=== PATIENT | female | born 1950 | race Caucasian/White ===

== ENCOUNTER 2019-06-04 18:55 | Inpatient (IN) | payer MEDICARE, BC ==
[~2019-06-04] VITALS: Ht 165.1 cm; Wt 84.8 kg
--- NOTE | 2019-06-04 19:25 | NUR ---
Dr. Montes at bedside for MSE.
[2019-06-04] MEDS ORDERED: KETOROLAC TROMETHAMINE 60 MG INJ IM ONE (19:30)
--- NOTE | 2019-06-04 19:30 | NUR ---
Patient ambulated out of ER with stable gait, pt is A/O x 4 and speaking in complete sentences. Pt presents to ER for the c/o left shoulder/arm, back and bilateral hand pain s/p fall 2 hours [employer]. Pt denies LOC. PMX: osteoporosis Safe environment implemented.
[2019-06-04] MEDS ORDERED: IBUPROFEN 600 MG TABLET PO ONE (19:45)
[2019-06-04] MEDS ORDERED: ACETAMINOPHEN ES 500 MG TABLET PO ONE (19:45)
[2019-06-04] MEDS ORDERED: ACETAMINOPHEN ES 500 MG TABLET ONE (19:51)
[2019-06-04] MEDS ORDERED: IBUPROFEN 600 MG TABLET ONE (19:51)
--- NOTE | 2019-06-04 19:54 | NUR ---
Pt is refusing to have blood drawn at this time, ER made aware.
--- NOTE | 2019-06-04 20:31 | NUR ---
Pt back in room from CT scan.
[2019-06-04] MEDS ORDERED: LORAZEPAM 2 MG/1 ML VIAL IM ONE (22:15)
[2019-06-04] MEDS ORDERED: LORAZEPAM 2 MG/1 ML VIAL ONE (22:18)
[2019-06-04 23:32] LABS: BASOPHILS # (AUTO) 0.1 K/uL (0.0-8.0); BASOPHILS % (AUTO) 0.9 % (0.0-2.0); EOSINOPHILS # (AUTO) 0.1 K/uL (0.0-0.7); EOSINOPHILS % (AUTO) 1.3 % (0.0-7.0); HEMATOCRIT 35.7 % (31.2-41.9); HEMOGLOBIN 12.1 g/dL (10.9-14.3); LYMPHOCYTES # (AUTO) 3.7 K/uL (20.0-40.0); LYMPHOCYTES % (AUTO) 37.6 % (20.5-51.5); MEAN CORPUSCULAR HGB CONC 34 g/dL (32.3-35.6); MEAN CORPUSCULAR VOLUME 85.2 fL (75.5-95.3); MONOCYTES # (AUTO) 0.8 K/uL (2.0-10.0); MONOCYTES % (AUTO) 8.3 % (0.0-11.0); NEUTROPHILS # (AUTO) 5.1 K/uL (1.8-8.9); NEUTROPHILS % (AUTO) 51.9 % (38.5-71.5); PLATELET COUNT (AUTO) 268 K/uL (179-408); RED BLOOD CELL COUNT(AUTO) 4.19 MIL/uL (3.63-4.92); WHITE BLOOD COUNT (AUTO) 9.8 K/uL (3.8-11.8)
[2019-06-04 23:46] LABS: CREATININE 0.6 mg/dL (0.6-1.3); POTASSIUM 3.9 mmol/L (3.5-5.1)
[2019-06-04 23:52] LABS: BILIRUBIN,DIRECT 0.1 mg/dL (0.0-0.2); BILIRUBIN,TOTAL 0.4 mg/dL (0.2-1.0); TOTAL PROTEIN, SERUM 6.5 g/dL (6.4-8.2)
[2019-06-05] MEDS ORDERED: SWABABLE VALVE TRANSFER SET EA MC ONE (00:11)
[2019-06-05] MEDS ORDERED: IOHEXOL 350 100 ML INFUS..BTL ONE (00:11)
[2019-06-05] MEDS ORDERED: IV NORMAL SALINE 0 ML IV ONE (00:11)
[2019-06-05] MEDS ORDERED: IV NORMAL SALINE 250 ML IV ONE (00:12)
--- NOTE | 2019-06-05 00:17 | NUR ---
Called [facility] to beena Parnell NP.
--- NOTE | 2019-06-05 00:25 | NUR ---
Dr. Mnotes on phone with Soheila LINO.
[2019-06-05] MEDS ORDERED: IV NS 1000 ML 1,000 ML IV PRN (00:39)
[2019-06-05] MEDS ORDERED: ACETAMINOPHEN 325 MG TABLET PO PRN (00:45)
[2019-06-05] MEDS ORDERED: ONDANSETRON 4 MG/2 ML VIAL IV PRN (00:45)
[2019-06-05] MEDS ORDERED: ASPIRIN 325 MG TABLET PO ONE (00:45)
[2019-06-05] MEDS ORDERED: HYDROCODONE/APAP 5-325MG TABLET PO PRN (00:45)
[2019-06-05] MEDS ORDERED: MAGNESIUM HYDROXIDE 30 ML LIQUID UDC PO PRN (00:45)
[2019-06-05] MEDS ORDERED: MORPHINE SULFATE 2 MG/1 ML DISP.SYRIN IV PRN (00:45)
--- NOTE | 2019-06-05 00:45 | NUR ---
Report given to receiving primary RN. Pt aware of plan of care.
--- NOTE | 2019-06-05 00:50 | NUR ---
Per son, he would like to know CTA results prior to admision of patient. Dr. Montes made aware and at bedside for update.
[2019-06-05 00:52] LABS: *BILIRUBIN,URIN NEGATIVE (NEGATIVE); *BLOOD, URINE NEGATIVE (NEGATIVE); *COLOR,URINE YELLOW (YELLOW); *KETONES,URINE TRACE (NEGATIVE); *UROBILINOGEN,URINE 0.2 E.U./dl (NORMAL); LEUKOCYTE ESTERASE ,URINE NEGATIVE (NEGATIVE); NITRITE, URINE NEGATIVE (NEGATIVE); UGLUCOSE NEGATIVE (NEGATIVE)
[2019-06-05 00:57] LABS: *CLARITY,URINE HAZY (CLEAR)
[2019-06-05] MEDS ORDERED: KETOROLAC TROMETHAMINE 30 MG INJ IVP ONE (01:00)
[2019-06-05] MEDS ORDERED: KETOROLAC TROMETHAMINE 30 MG INJ ONE (01:00)
[2019-06-05 01:01] LABS: BACTERIA,URINE FEW /HPF (NONE SEEN); CALCIUM OXALATE CRYSTALS,UR MANY /HPF (NONE SEEN); MUCUS,URINE MODERATE /LPF (0-FEW); RBC,URINE 0-3 /HPF (0-3); SQUAMOUS EPITHELIAL CELL,UR MODERATE /HPF (NONE SEEN); WBC,URINE 0-3 /HPF (0-3)
--- NOTE | 2019-06-05 01:30 | NUR ---
Pt. admitted to Telemetry , under care of Soheila LINO Belongs List completed
[2019-06-05 01:49] VITALS: BP 151/52
--- NOTE | 2019-06-05 02:00 | NUR ---
Patient requesting to get a sleeping medicine, per patient she has taken ambien before and state it has not help her sleep at all. Contacted Tino Parnell NP about patient request and he ordered to give patient Restoril 7.5mg po HSPRN.
--- NOTE | 2019-06-05 02:00 | NUR ---
PATIENT RECEIVED VIA TDX WITH BELONGINGS. PATIENT IS IN NO APPARENT DISTRESS AT THIS TIME. 02 AT 2L VIA [place]. PATIENT PLACED ON TELE MONITOR READING SR PATIENT IS ALERT AND ORIENTED X3, VERY PLEASANT AND COOPERATIVE. INITIAL ASSESSMENT DONE. BED IN LOWEST POSITION, SIDE RAILS UP X 2. WILL CONTINUE TO MONITOR.
[2019-06-05] MEDS ORDERED: TEMAZEPAM 7.5 MG CAPSULE PO PRN (02:30)
--- NOTE | 2019-06-05 03:00 | NUR ---
Contacted Tino Parnell NP to inquire about prescribed morphine for patient since she has codeine allergy. Provider decided to discontinue said medication.
[2019-06-05 04:00] VITALS: BP 134/52
[2019-06-05] MEDS ORDERED: GUAIFENESIN/DEXTROMETHORPHAN 5 ML UDC PO PRN (05:00)
--- NOTE | 2019-06-05 05:30 | NUR ---
Patient complaining of difficulty to cough out phlegm, contacted Tino Parnell for possible medication orders. Provider ordered breathing treatment and robitussin DM. Informed provider of episode of 1st degree AV block, STAT EKG ordered result is Sinus rhythm with PVCs which was reported to provider who said to order cardiology consult.
[2019-06-05] MEDS: IPRATROPIUM BROMIDE 0.5 MG/2.5 ML NEBU NEB PRN ×2 (05:53→10:13)
[2019-06-05] MEDS: ALBUTEROL SULFATE 2.5 MG/3 ML NEBU NEB PRN ×2 (05:53→10:13)
--- NOTE | 2019-06-05 06:08 | NUR ---
PATIENT IS AWAKE IN BED ALERT AND ORIENTED. BED IS LOCKED, CALL LIGHT WITHIN REACH WITH SIDE RAILS UP X 2 .PATIENT IS IN NO APPARENT DISTRESS AT THIS TIME. WILL CONTINUE TO MONITOR.
[2019-06-05] MEDS ORDERED: PANTOPRAZOLE SODIUM 40 MG TABLET.DR PO SCH (07:00)
[2019-06-05 07:08] LABS: BILIRUBIN,TOTAL 0.2 mg/dL (0.2-1.0); CREATININE 0.8 mg/dL (0.6-1.3); PHOSPHOROUS 3.1 mg/dL (2.5-4.9); POTASSIUM 3.9 mmol/L (3.5-5.1)
[2019-06-05 07:15] LABS: THYROID STIMULATING HORMONE 2.527 mIU/mL (0.358-3.740)
--- NOTE | 2019-06-05 07:20 | NUR ---
RECEIVED PATIENT LAYING IN BED, NO DISTRESS NOTED AT THIS TIME. PATIENT ALERT AND ORIENTED X4. PATIENT DENIES PAIN AND DISCOMFORT. BED IN LOWEST POSITION, SIDE RAILS UP X2, CALL LIGHT WITHIN REACH. WILL CONTINUE TO MONITOR.
[2019-06-05 07:23] LABS: BASOPHILS % (AUTO) 0.3 % (0.0-2.0); EOSINOPHILS # (AUTO) 0.1 K/uL (0.0-0.7); EOSINOPHILS % (AUTO) 1.2 % (0.0-7.0); HEMATOCRIT 34.3 % (31.2-41.9); HEMOGLOBIN 11.8 g/dL (10.9-14.3); LYMPHOCYTES % (AUTO) 44.2 % (20.5-51.5); MEAN CORPUSCULAR HEMOGLOBIN 29.2 uug (24.7-32.8); MEAN CORPUSCULAR HGB CONC 34 g/dL (32.3-35.6); MEAN CORPUSCULAR VOLUME 84.9 fL (75.5-95.3); MONOCYTES # (AUTO) 0.7 K/uL (2.0-10.0); MONOCYTES % (AUTO) 7.7 % (0.0-11.0); NEUTROPHILS # (AUTO) 4.2 K/uL (1.8-8.9); NEUTROPHILS % (AUTO) 46.6 % (38.5-71.5); PLATELET COUNT (AUTO) 246 K/uL (179-408); RED BLOOD CELL COUNT(AUTO) 4.03 MIL/uL (3.63-4.92)
[2019-06-05] MEDS ORDERED: ENOXAPARIN SODIUM 40 MG/0.4 ML DISP.SYRIN SQ SCH (09:00)
[2019-06-05] MEDS ORDERED: DEXTROSE 50% 50 ML DISP.SYRIN IV PRN (10:45)
[2019-06-05] MEDS ORDERED: INSULIN REGULAR, HUMAN 300 UNIT/3 ML VIAL SQ PRN (10:45)
[2019-06-05 11:41] VITALS: BP 121/46
[2019-06-05] MEDS: BLOOD SUGAR DIAGNOSTIC 1 EACH STRIP VI SCH ×2 (12:12→16:50)
[2019-06-05 16:02] VITALS: BP 105/40
[2019-06-05] MEDS ORDERED: IBUP-1954 PO (17:07)
--- NOTE | 2019-06-05 17:10 | NUR ---
PATIENT DISCHARGED TO HOME. DISCHARGE INSTRUCTIONS REVIEWED WITH PATIENT AND FAMILY. GENEVA VERBALIZED UNDERSTANDING OF INSTRUCTION.PATIENT WHEELED DOWN TO CAR.
== END 2019-06-05 17:40 | disposition home or self-care (01) | DRG 948 ==
LOC: ER 18:59 → TELE3 06-05 01:18 → MEDSURG3 06-05 14:19
PROVIDERS: ADMIT Nurse Practitioner Acute Care; ATTEND Registered Nurse
DX: G89.11 Acute pain due to trauma (principal); M50.022 Cervical disc disorder at C5-C6 level with myelopathy; M54.2 Cervicalgia; M25.512 Pain in left shoulder; M25.562 Pain in left knee; M48.02 Spinal stenosis, cervical region; M50.122 Cervical disc disorder at C5-C6 level with radiculopathy; E86.0 Dehydration; E66.9 Obesity, unspecified; Z68.31 Body mass index [BMI] 31.0-31.9, adult; I10 Essential (primary) hypertension; E11.65 Type 2 diabetes mellitus with hyperglycemia; Z88.6 Allergy status to analgesic agent; Z91.040 Latex allergy status; W03.XXXA Other fall on same level due to collision with another person, initial encounter; Y93.89 Activity, other specified; Y92.511 Restaurant or cafe as the place of occurrence of the external cause; Z87.81 Personal history of (healed) traumatic fracture
CPT/HCPCS: 36415; 70450; 70496; 71045; 72125; 73030; 73060; 73590; 83735; 84100; 84443; 85025; 85730; 93005; 93307; 93880; 94640; 94664; A4663; A9150; G0378; J1650; J1815; J1885; J2060; J3590; J7030; J7050; Q9967